=== PATIENT | female | born 1985 | race Hispanic/Latino ===

== ENCOUNTER 2024-11-09 18:18 | Emergency (ER) | payer BC ==
[~2024-11-09] VITALS: Ht 162.6 cm; Wt 90.9 kg
[2024-11-09 18:35] VITALS: PULSE 128; RESP 18; TEMP 99.7
[2024-11-09] MEDS: KETOROLAC TROMETHAMINE 30 MG/ML VIAL IV STA (19:05)
[2024-11-09] MEDS: SODIUM CHLORIDE 0.9% 1000ML 1,000 ML IV ONE (19:06)
[2024-11-09] MEDS ORDERED: ONDANSETRON ODT4 MG PO (19:59)
[2024-11-09 20:28] VITALS: BP 127/70; PULSE 88; RESP 16; TEMP 98.8; O2SAT 96
== END 2024-11-09 20:31 | disposition home or self-care (01) ==
LOC: FSED 18:35
DX: R05.9 Cough, unspecified (principal); J10.1 Influenza due to other identified influenza virus with other respiratory manifestations; R42 Dizziness and giddiness
CPT/HCPCS: 99283; J1885; J7030